=== PATIENT | male | born 1960 | race Caucasian/White ===

== ENCOUNTER 2024-06-27 12:26 | Inpatient (IN) | payer MEDICARE, MEDICAID ==
[~2024-06-27] VITALS: Ht 149.9 cm; Wt 81.2 kg
[2024-06-27] VITALS (25 sets, daily range): BP systolic 76–142; BP diastolic 21–89
[2024-06-27] MEDS ORDERED: Albuterol Sulf/Ipratropium 3 ML VIAL NEB ONE (12:45)
[2024-06-27] MEDS ORDERED: methylPREDNISolone sod succ 125 MG VIAL IV ONE (12:45)
[2024-06-27 12:47] LABS: ABG O2 SATURATION 99.7 % (94.0-98.0); ARTERIAL BLOOD GAS PH 7.416 (7.350-7.450); ARTERIAL BLOOD GAS PO2 201.4 mmHg (83.0-108.0)
[2024-06-27 12:49] LABS: ABG BASE EXCESS 12.8 mmol/L (-2.0-3.0)
[2024-06-27 12:54] LABS: BASO % 0.3 % (0.0-1.0); EOS # 0.1 10*3/uL (0.0-0.4); HEMATOCRIT 39.3 % (42.0-52.0); LYMPH # 1.6 10*3/uL (1.3-4.4); LYMPH % 26.1 % (27.0-41.0); MEAN CELL VOLUME 107.1 fl (80.0-94.0); MEAN CORPUSCULAR HGB 33.8 pg (27.0-31.0); MEAN CORPUSCULAR HGB CONC 31.6 g/dl (33.0-37.0); MEAN PLATELET VOLUME 11.2 fl (9.6-12.3); MONO # 0.5 10*3/uL (0.1-1.0); MONO % 7.7 % (3.0-9.0); NEUT # 3.9 10*3/uL (2.3-7.9); NEUT % 64.6 % (47.0-73.0); PLATELET COUNT AUTOMATED 194 10*3/uL (130-400); RED BLOOD COUNT 3.67 10*6/uL (4.50-5.90); RED CELL DISTRI WIDTH 17.2 % (0-14.5); WHITE BLOOD COUNT 6.1 10*3/uL (4.8-10.8)
[2024-06-27 13:20] LABS: ALKALINE PHOSPHATASE 125 U/L (46-116); BUN 29 mg/dl (9-23); CHLORIDE 100 mmol/L (98-107); SGPT/ALT 41 U/L (5-49); TOTAL PROTEIN 7.1 gm/dL (6.0-8.0)
[2024-06-27] MEDS ORDERED: BUDESONIDE1 MG/2 ML INH (13:33)
[2024-06-27] MEDS ORDERED: DAILY-VITE TA400 MCG PEG (13:34)
[2024-06-27] MEDS ORDERED: CALCIUM CARBON600 M4 PEG (13:34)
[2024-06-27] MEDS ORDERED: LEVETIRACE100 MG/1 M PEG (13:35)
[2024-06-27] MEDS ORDERED: LEVOTHYROXINE150 MCG PEG (13:35)
[2024-06-27] MEDS ORDERED: MIDODRINE HCL2.5 MG PEG (13:36)
[2024-06-27] MEDS ORDERED: STOOL SOFTENER100 M3 PEG (13:39)
[2024-06-27] MEDS ORDERED: FAMOTIDINE20 M1 PEG (13:40)
[2024-06-27] MEDS ORDERED: FUROSEMIDE40 MG PEG (13:41)
[2024-06-27] MEDS ORDERED: EXELON1 EAC1 TD (13:42)
[2024-06-27] MEDS ORDERED: Ipratropium Brom3 ML INH (13:42)
[2024-06-27] MEDS ORDERED: JEVITY 1.5 CAL237 ML PEG (13:44)
[2024-06-27] MEDS ORDERED: TAMSULOSIN HCL0.4 MG PEG (13:48)
[2024-06-27] MEDS ORDERED: VITAMIN D350 MC2 GT (13:48)
[2024-06-27] MEDS ORDERED: Meropenem 1 GM in SODIUM CHLORIDE 0.9% 100 ML IV ONE (14:00)
[2024-06-27] MEDS ORDERED: Vancomycin Hydrochloride 250 ML IV ONE (14:00)
[2024-06-27] MEDS ORDERED: SODIUM CHLORIDE 0.9% 1,000 ML IV ONE (14:10)
[2024-06-27] MEDS ORDERED: ACETAMINOPHEN 325 MG TAB PO PRN (15:05)
[2024-06-27] MEDS ORDERED: Ondansetron Hydrochloride 4 MG/2 ML VIAL IV PRN (15:05)
[2024-06-27] MEDS ORDERED: BISACODYL 5 MG TAB PO PRN (15:05)
[2024-06-27] MEDS ORDERED: Magnesium Hydroxide 30 ML UDC PO PRN (15:05)
[2024-06-27] MEDS ORDERED: ACETAMINOPHEN 650 MG SUPP R PRN (15:05)
[2024-06-27] MEDS ORDERED: BISACODYL 10 MG SUPP R PRN (15:05)
[2024-06-27 15:12] LABS: ABG O2 SATURATION 93.3 % (94.0-98.0); ARTERIAL BLOOD GAS PH 7.426 (7.350-7.450); ARTERIAL BLOOD GAS PO2 68.6 mmHg (83.0-108.0)
[2024-06-27 15:13] LABS: ABG BASE EXCESS 6.7 mmol/L (-2.0-3.0)
[2024-06-27] MEDS ORDERED: NOREPINEPHRINE BITARTRATE/D5W 250 ML IV SCH (17:35)
[2024-06-27] MEDS ORDERED: Menthol/Zinc Oxide 4 GM THIN T SCH (18:25)
[2024-06-27 19:08] LABS: ABG O2 SATURATION 96.3 % (94.0-98.0); ARTERIAL BLOOD GAS PH 7.432 (7.350-7.450)
[2024-06-27] MEDS ORDERED: Albuterol Sulf/Ipratropium 3 ML VIAL NEB SCH (21:50)
[2024-06-27] MEDS ORDERED: MAGNESIUM SULFATE 50 ML IV ONE (21:50)
[2024-06-27] MEDS ORDERED: Meropenem 1 GM in SODIUM CHLORIDE 0.9% 100 ML IV SCH (22:00)
[2024-06-27] MEDS ORDERED: Midodrine Hydrochloride 5 MG TAB PO SCH (22:00)
[2024-06-27] MEDS ORDERED: Tamsulosin Hydrochloride 0.4 MG CAP PO SCH (22:00)
[2024-06-27] MEDS ORDERED: LEVETIRACETAM 500 MG/5 ML UDC PO SCH (22:00)
[2024-06-27] MEDS ORDERED: FAMOTIDINE 20 MG TAB PEG SCH (22:00)
[2024-06-28] VITALS (32 sets, daily range): BP systolic 69–130; BP diastolic 24–83
[2024-06-28] MEDS ORDERED: VANCOMYCIN/WATER FOR INJ (PEG) 250 ML IV SCH (04:00)
[2024-06-28 06:24] LABS: HEMATOCRIT 36.3 % (42.0-52.0); LYMPH # 1.5 10*3/uL (1.3-4.4); LYMPH % 30.7 % (27.0-41.0); MEAN CORPUSCULAR HGB 33.9 pg (27.0-31.0); MEAN CORPUSCULAR HGB CONC 31.4 g/dl (33.0-37.0); MEAN PLATELET VOLUME 11.4 fl (9.6-12.3); MONO # 0.4 10*3/uL (0.1-1.0); MONO % 8.6 % (3.0-9.0); NEUT % 60.1 % (47.0-73.0); PLATELET COUNT AUTOMATED 183 10*3/uL (130-400); RED BLOOD COUNT 3.36 10*6/uL (4.50-5.90); RED CELL DISTRI WIDTH 16.9 % (0-14.5)
[2024-06-28 07:03] LABS: ALKALINE PHOSPHATASE 98 U/L (46-116); BUN 22 mg/dl (9-23); CHLORIDE 103 mmol/L (98-107); POTASSIUM 4.1 mmol/L (3.4-5.1); SGPT/ALT 33 U/L (5-49); TOTAL PROTEIN 6.4 gm/dL (6.0-8.0)
[2024-06-28] MEDS ORDERED: Menthol/Zinc Oxide 4 GM THIN T PRN (09:40)
[2024-06-28] MEDS ORDERED: NYSTATIN 15 GM BOT T SCH (10:00)
[2024-06-28] MEDS ORDERED: Enoxaparin Sodium 40 MG/0.4 ML SYR SC SCH (10:00)
[2024-06-28] MEDS ORDERED: Levothyroxine Sodium 150 MCG TAB PEG SCH (10:00)
[2024-06-28] MEDS ORDERED: Menthol/Zinc Oxide 4 GM THIN T SCH (10:00)
[2024-06-28] MEDS ORDERED: FUROSEMIDE 40 MG/4 ML VIAL IV SCH (10:00)
[2024-06-28] MEDS ORDERED: SENNA8.6 MG PO (10:36)
[2024-06-28] MEDS ORDERED: PERFLUTREN PROTEIN-A MICROSPHR 3 ML VIAL IV ONE (11:34)
[2024-06-28] MEDS ORDERED: Midodrine Hydrochloride 5 MG TAB PO SCH (12:03)
[2024-06-28] MEDS ORDERED: LACTULOSE 20 GM/30 ML UDC PEG SCH ×2 (14:00)
[2024-06-28] MEDS ORDERED: methylPREDNISolone sod succ 40 MG VIAL IV SCH (14:00)
[2024-06-28 18:01] LABS: BILIRUBIN Negative (Negative); BLOOD 2+ (Negative); CLARITY Clear (Clear); COLOR Yellow (Yellow); GLUCOSE Negative (Negative); KETONE Trace (Negative); LEUKO ESTERASE Trace (Negative); NITRITE Negative (Negative); PH 5.5 (4.5-8.0); SPECIFIC GRAVITY >= 1.030 (1.001-1.030)
[2024-06-28 18:06] LABS: BACTERIA TRACE; EPITHELIAL CELLS 0-2; RBC 0-2 rbc/hpf (0-2); WBC 0-2 wbc/hpf (0-5)
[2024-06-28] MEDS ORDERED: Albuterol Sulf/Ipratropium 3 ML VIAL NEB SCH (21:50)
[2024-06-28] MEDS ORDERED: LEVETIRACETAM 500 MG/5 ML UDC PO SCH (22:00)
[2024-06-29] VITALS (7 sets, daily range): BP systolic 91–117; BP diastolic 45–75
[2024-06-29] MEDS ORDERED: FOAM BANDAGE HEEL T ONE (03:18)
[2024-06-29 06:19] LABS: BUN 18 mg/dl (9-23); CHLORIDE 107 mmol/L (98-107); POTASSIUM 4.3 mmol/L (3.4-5.1)
[2024-06-29 06:33] LABS: HEMATOCRIT 36.8 % (42.0-52.0); LYMPH # 1.1 10*3/uL (1.3-4.4); LYMPH % 22.1 % (27.0-41.0); MEAN CORPUSCULAR HGB 33.7 pg (27.0-31.0); MEAN CORPUSCULAR HGB CONC 31.5 g/dl (33.0-37.0); MEAN PLATELET VOLUME 11.7 fl (9.6-12.3); MONO # 0.2 10*3/uL (0.1-1.0); MONO % 4.3 % (3.0-9.0); NEUT # 3.7 10*3/uL (2.3-7.9); PLATELET COUNT AUTOMATED 167 10*3/uL (130-400); RED BLOOD COUNT 3.44 10*6/uL (4.50-5.90); RED CELL DISTRI WIDTH 17.1 % (0-14.5); WHITE BLOOD COUNT 5.1 10*3/uL (4.8-10.8)
[2024-06-29] MEDS ORDERED: HEEL PROTECTOR DEVICE ONE (14:08)
[2024-06-29] MEDS ORDERED: VANCOMYCIN/WATER FOR INJ (PEG) 250 ML IV SCH (22:00)
[2024-06-30] VITALS: BP 111/71
[2024-06-30 04:00] VITALS: BP 111/61
[2024-06-30 05:49] LABS: BUN 20 mg/dl (9-23); CHLORIDE 107 mmol/L (98-107); POTASSIUM 4.3 mmol/L (3.4-5.1)
[2024-06-30 06:34] LABS: BASO % 0.2 % (0.0-1.0); HEMATOCRIT 36.9 % (42.0-52.0); LYMPH % 16.1 % (27.0-41.0); MEAN CELL VOLUME 106.3 fl (80.0-94.0); MEAN CORPUSCULAR HGB 33.7 pg (27.0-31.0); MEAN CORPUSCULAR HGB CONC 31.7 g/dl (33.0-37.0); MEAN PLATELET VOLUME 11.8 fl (9.6-12.3); MONO # 0.3 10*3/uL (0.1-1.0); MONO % 4.2 % (3.0-9.0); NEUT # 5.1 10*3/uL (2.3-7.9); NEUT % 78.9 % (47.0-73.0); PLATELET COUNT AUTOMATED 139 10*3/uL (130-400); RED BLOOD COUNT 3.47 10*6/uL (4.50-5.90); RED CELL DISTRI WIDTH 16.9 % (0-14.5); WHITE BLOOD COUNT 6.5 10*3/uL (4.8-10.8)
[2024-06-30 08:00] VITALS: BP 110/74
[2024-06-30 12:00] VITALS: BP 111/79
[2024-06-30 16:00] VITALS: BP 120/62
[2024-06-30 20:00] VITALS: BP 131/70
[2024-07-01] VITALS: BP 122/69
[2024-07-01 04:00] VITALS: BP 114/62
[2024-07-01 04:14] LABS: BASO % 0.2 % (0.0-1.0); HEMATOCRIT 35.4 % (42.0-52.0); LYMPH # 0.5 10*3/uL (1.3-4.4); LYMPH % 9.4 % (27.0-41.0); MEAN CELL VOLUME 106.3 fl (80.0-94.0); MEAN CORPUSCULAR HGB 33.3 pg (27.0-31.0); MEAN CORPUSCULAR HGB CONC 31.4 g/dl (33.0-37.0); MEAN PLATELET VOLUME 11.9 fl (9.6-12.3); MONO # 0.2 10*3/uL (0.1-1.0); MONO % 3.3 % (3.0-9.0); NEUT # 4.7 10*3/uL (2.3-7.9); NEUT % 85.8 % (47.0-73.0); PLATELET COUNT AUTOMATED 135 10*3/uL (130-400); RED BLOOD COUNT 3.33 10*6/uL (4.50-5.90); RED CELL DISTRI WIDTH 16.6 % (0-14.5); WHITE BLOOD COUNT 5.4 10*3/uL (4.8-10.8)
[2024-07-01 04:33] LABS: BUN 21 mg/dl (9-23); CHLORIDE 105 mmol/L (98-107); POTASSIUM 4.4 mmol/L (3.4-5.1)
[2024-07-01 08:00] VITALS: BP 110/59
[2024-07-01 12:00] VITALS: BP 119/64
[2024-07-01 16:00] VITALS: BP 115/64
[2024-07-01 20:00] VITALS: BP 121/73
[2024-07-01] MEDS ORDERED: FUROSEMIDE 40 MG/4 ML VIAL IV ONE (22:05)
[2024-07-02] VITALS: BP 105/72
[2024-07-02 04:00] VITALS: BP 110/68
[2024-07-02 06:08] LABS: BASO % 0.2 % (0.0-1.0); HEMATOCRIT 37.5 % (42.0-52.0); LYMPH # 1.5 10*3/uL (1.3-4.4); LYMPH % 23.5 % (27.0-41.0); MEAN CELL VOLUME 104.2 fl (80.0-94.0); MEAN CORPUSCULAR HGB 33.9 pg (27.0-31.0); MEAN CORPUSCULAR HGB CONC 32.5 g/dl (33.0-37.0); MEAN PLATELET VOLUME 12.4 fl (9.6-12.3); MONO # 0.5 10*3/uL (0.1-1.0); MONO % 6.9 % (3.0-9.0); NEUT # 4.5 10*3/uL (2.3-7.9); NEUT % 68.2 % (47.0-73.0); NUCLEATED RED BLOOD CELL 0.3 % (0.0-0.0); PLATELET COUNT AUTOMATED 145 10*3/uL (130-400); RED CELL DISTRI WIDTH 16.6 % (0-14.5); WHITE BLOOD COUNT 6.5 10*3/uL (4.8-10.8)
[2024-07-02 06:46] LABS: BUN 23 mg/dl (9-23); CHLORIDE 103 mmol/L (98-107); POTASSIUM 3.9 mmol/L (3.4-5.1)
[2024-07-02 08:00] VITALS: BP 116/57
[2024-07-02] MEDS ORDERED: methylPREDNISolone sod succ 40 MG VIAL IV SCH (10:00)
[2024-07-02 12:00] VITALS: BP 121/74
[2024-07-02 16:00] VITALS: BP 121/74
[2024-07-02 20:00] VITALS: BP 109/66
[2024-07-03] VITALS: BP 140/76
[2024-07-03 04:00] VITALS: BP 111/75
[2024-07-03 05:36] LABS: BUN 25 mg/dl (9-23); CHLORIDE 102 mmol/L (98-107); POTASSIUM 4.7 mmol/L (3.4-5.1)
[2024-07-03 06:12] LABS: BASO % 0.2 % (0.0-1.0); HEMATOCRIT 36.8 % (42.0-52.0); LYMPH # 0.7 10*3/uL (1.3-4.4); LYMPH % 14.8 % (27.0-41.0); MEAN CELL VOLUME 103.7 fl (80.0-94.0); MEAN CORPUSCULAR HGB 33.8 pg (27.0-31.0); MEAN CORPUSCULAR HGB CONC 32.6 g/dl (33.0-37.0); MEAN PLATELET VOLUME 12.5 fl (9.6-12.3); MONO # 0.1 10*3/uL (0.1-1.0); MONO % 2.6 % (3.0-9.0); PLATELET COUNT AUTOMATED 178 10*3/uL (130-400); RED BLOOD COUNT 3.55 10*6/uL (4.50-5.90); RED CELL DISTRI WIDTH 16.5 % (0-14.5)
[2024-07-03 08:00] VITALS: BP 102/64
[2024-07-03] MEDS ORDERED: Chlorhexidine Gluconate 15 ML MOUTHWASH T SCH (10:00)
[2024-07-03] MEDS ORDERED: FUROSEMIDE 40 MG/4 ML VIAL IV SCH (11:05)
[2024-07-03 12:00] VITALS: BP 102/63
[2024-07-03 16:00] VITALS: BP 123/69
[2024-07-03 20:00] VITALS: BP 92/57
[2024-07-04] VITALS: BP 118/84
[2024-07-04 04:00] VITALS: BP 108/78
[2024-07-04 06:00] LABS: BUN 32 mg/dl (9-23); CHLORIDE 101 mmol/L (98-107); POTASSIUM 4.8 mmol/L (3.4-5.1)
[2024-07-04 08:00] VITALS: BP 111/72
[2024-07-04 08:06] LABS: BASO % 0.1 % (0.0-1.0); HEMATOCRIT 39.3 % (42.0-52.0); LYMPH # 2.3 10*3/uL (1.3-4.4); LYMPH % 29.9 % (27.0-41.0); MEAN CELL VOLUME 102.9 fl (80.0-94.0); MEAN CORPUSCULAR HGB 33.8 pg (27.0-31.0); MEAN CORPUSCULAR HGB CONC 32.8 g/dl (33.0-37.0); MEAN PLATELET VOLUME 11.7 fl (9.6-12.3); MONO # 0.6 10*3/uL (0.1-1.0); NEUT # 4.7 10*3/uL (2.3-7.9); NEUT % 60.3 % (47.0-73.0); RED BLOOD COUNT 3.82 10*6/uL (4.50-5.90); RED CELL DISTRI WIDTH 17.1 % (0-14.5); WHITE BLOOD COUNT 7.7 10*3/uL (4.8-10.8)
[2024-07-04 08:11] LABS: PLATELET COUNT AUTOMATED 235 10*3/uL (130-400)
[2024-07-04 11:59] VITALS: BP 122/83
== END 2024-07-04 13:28 | disposition hospice, inpatient (51) | DRG 871 ==
LOC: ED 12:26 → EDHOLD 14:09 → ICCU 14:09 → EDHOLD 14:10 → ICCU 06-28 09:42
PROVIDERS: Internal Medicine; Nurse Practitioner Family; Student in an Organized Health Care Education/Training Program; ADMIT Student in an Organized Health Care Education/Training Program; ATTEND Student in an Organized Health Care Education/Training Program
PROC: 02HV33Z Insertion of Infusion Device into Superior Vena Cava, Percutaneous Approach (ICD-10-PCS; principal; 2024-06-27)
PROC: B548ZZA Ultrasonography of Superior Vena Cava, Guidance (ICD-10-PCS; 2024-06-27)
PROC: 5A0935A Assistance with Respiratory Ventilation, Less than 24 Consecutive Hours, High Flow/Velocity Cannula (ICD-10-PCS; 2024-06-27)
PROC: 5A09357 Assistance with Respiratory Ventilation, Less than 24 Consecutive Hours, Continuous Positive Airway Pressure (ICD-10-PCS; 2024-06-27)
PROC: 5A09357 Assistance with Respiratory Ventilation, Less than 24 Consecutive Hours, Continuous Positive Airway Pressure (ICD-10-PCS; 2024-06-28)
PROC: 5A0935A Assistance with Respiratory Ventilation, Less than 24 Consecutive Hours, High Flow/Velocity Cannula (ICD-10-PCS; 2024-06-29)
PROC: 5A09357 Assistance with Respiratory Ventilation, Less than 24 Consecutive Hours, Continuous Positive Airway Pressure (ICD-10-PCS; 2024-06-29)
PROC: 5A0935A Assistance with Respiratory Ventilation, Less than 24 Consecutive Hours, High Flow/Velocity Cannula (ICD-10-PCS; 2024-06-30)
PROC: 5A09457 Assistance with Respiratory Ventilation, 24-96 Consecutive Hours, Continuous Positive Airway Pressure (ICD-10-PCS; 2024-06-30)
PROC: 5A0935A Assistance with Respiratory Ventilation, Less than 24 Consecutive Hours, High Flow/Velocity Cannula (ICD-10-PCS; 2024-07-02)
PROC: 5A09357 Assistance with Respiratory Ventilation, Less than 24 Consecutive Hours, Continuous Positive Airway Pressure (ICD-10-PCS; 2024-07-02)
PROC: 5A0935A Assistance with Respiratory Ventilation, Less than 24 Consecutive Hours, High Flow/Velocity Cannula (ICD-10-PCS; 2024-07-03)
PROC: 5A09357 Assistance with Respiratory Ventilation, Less than 24 Consecutive Hours, Continuous Positive Airway Pressure (ICD-10-PCS; 2024-07-03)
PROC: 5A0935A Assistance with Respiratory Ventilation, Less than 24 Consecutive Hours, High Flow/Velocity Cannula (ICD-10-PCS; 2024-07-04)
PROC: 5A09357 Assistance with Respiratory Ventilation, Less than 24 Consecutive Hours, Continuous Positive Airway Pressure (ICD-10-PCS; 2024-07-04)
DX: A41.9 Sepsis, unspecified organism (principal); G93.41 Metabolic encephalopathy; J69.0 Pneumonitis due to inhalation of food and vomit; R65.21 Severe sepsis with septic shock; J96.21 Acute and chronic respiratory failure with hypoxia; J44.0 Chronic obstructive pulmonary disease with (acute) lower respiratory infection; E87.3 Alkalosis; Z66 Do not resuscitate; Z51.5 Encounter for palliative care; G40.909 Epilepsy, unspecified, not intractable, without status epilepticus; E03.9 Hypothyroidism, unspecified; G30.0 Alzheimer's disease with early onset; D53.9 Nutritional anemia, unspecified; F02.80 Dementia in other diseases classified elsewhere, unspecified severity, without behavioral disturbance, psychotic disturbance, mood disturbance, and anxiety; N40.0 Benign prostatic hyperplasia without lower urinary tract symptoms; J45.909 Unspecified asthma, uncomplicated; E78.5 Hyperlipidemia, unspecified; K59.00 Constipation, unspecified; I95.89 Other hypotension; Z99.81 Dependence on supplemental oxygen; Q90.9 Down syndrome, unspecified; L89.312 Pressure ulcer of right buttock, stage 2; L89.892 Pressure ulcer of other site, stage 2; L89.621 Pressure ulcer of left heel, stage 1; Z79.899 Other long term (current) drug therapy

== ENCOUNTER 2024-07-04 13:38 | Inpatient (IN) | payer OTHER, MEDICARE, MEDICAID ==
[~2024-07-04] VITALS: Ht 149.9 cm; Wt 81.2 kg
[~2024-07-04 13:38] MED LIST: BUDESONIDE1 MG/2 ML INH; CALCIUM CARBON600 M4 PEG; DAILY-VITE TA400 MCG PEG; EXELON1 EAC1 TD; FAMOTIDINE20 M1 PEG; FUROSEMIDE40 MG PEG; Ipratropium Brom3 ML INH; JEVITY 1.5 CAL237 ML PEG; LEVETIRACE100 MG/1 M PEG; LEVOTHYROXINE150 MCG PEG; MIDODRINE HCL2.5 MG PEG; SENNA8.6 MG PO; STOOL SOFTENER100 M3 PEG; TAMSULOSIN HCL0.4 MG PEG; VITAMIN D350 MC2 GT
[2024-07-04 14:00] VITALS: BP 113/80
[2024-07-04] MEDS ORDERED: BISACODYL 5 MG TAB PO PRN (14:15)
[2024-07-04] MEDS ORDERED: BISACODYL 10 MG SUPP R PRN (14:15)
[2024-07-04] MEDS ORDERED: Magnesium Hydroxide 30 ML UDC PO PRN (14:15)
[2024-07-04] MEDS ORDERED: Ondansetron Hydrochloride 4 MG/2 ML VIAL IV PRN (14:15)
[2024-07-04] MEDS ORDERED: MORPHINE Sulfate 2 MG/ML SYR IV PRN (14:20)
[2024-07-04] MEDS ORDERED: LORazepam 2 MG/ML VIAL IV PRN (14:20)
[2024-07-04] MEDS ORDERED: MORPHINE Sulfate 2 MG/ML SYR IV SCH (14:30)
[2024-07-04 16:00] VITALS: BP 112/71
[2024-07-04 20:00] VITALS: BP 117/79
[2024-07-04] MEDS ORDERED: Sennosides A and B 8.6 MG TAB PO SCH (22:00)
[2024-07-04] MEDS ORDERED: LEVETIRACETAM 500 MG/5 ML UDC PEG SCH (22:00)
[2024-07-05 08:00] VITALS: BP 100/73
[2024-07-05] MEDS ORDERED: LORazepam 1 MG TAB SL PRN (09:55)
[2024-07-05] MEDS ORDERED: MORPHINE Sulfate 50 MG in SODIUM CHLORIDE 0.9% 45 ML IV SCH (09:55)
[2024-07-05] MEDS ORDERED: DOCUSATE SODIUM 100 MG/10 ML UDC PEG SCH (10:00)
[2024-07-05] MEDS ORDERED: LORazepam 1 MG TAB SL SCH (10:00)
[2024-07-05] MEDS ORDERED: SODIUM CHLORIDE 0.9% 500 ML IV ONE (10:55)
[2024-07-05] MEDS ORDERED: ATROPINE SULFATE 1% 2 ML BOTTLE SL SCH (12:00)
[2024-07-05] MEDS ORDERED: ACETAMINOPHEN 650 MG SUPP R PRN (15:55)
[2024-07-05] MEDS ORDERED: ACETAMINOPHEN 325 MG TAB PO PRN (15:55)
[2024-07-05 16:00] VITALS: BP 89/60
[2024-07-06] VITALS: BP 101/56
[2024-07-06 00:20] VITALS: BP 101/56
[2024-07-06] MEDS ORDERED: SODIUM CHLORIDE 0.9% 500 ML IV ONE (02:03)
[2024-07-06 08:00] VITALS: BP 85/50
== END 2024-07-06 13:00 | DRG 871 ==
LOC: ICCU 13:38 → 4E 07-05 21:15
PROVIDERS: ADMIT Internal Medicine; ATTEND Internal Medicine
PROC: 5A0935A Assistance with Respiratory Ventilation, Less than 24 Consecutive Hours, High Flow/Velocity Cannula (ICD-10-PCS; principal; 2024-07-04)
PROC: 5A0935A Assistance with Respiratory Ventilation, Less than 24 Consecutive Hours, High Flow/Velocity Cannula (ICD-10-PCS; 2024-07-05)
DX: A41.9 Sepsis, unspecified organism (principal); G93.41 Metabolic encephalopathy; J69.0 Pneumonitis due to inhalation of food and vomit; J96.01 Acute respiratory failure with hypoxia; J96.02 Acute respiratory failure with hypercapnia; Z51.5 Encounter for palliative care; K59.00 Constipation, unspecified